=== PATIENT | male | born 2000 | race Caucasian/White ===

== ENCOUNTER 2019-04-16 08:39 | Outpatient (RCR) | payer OTHER ==
[~2019-04-16 08:39] MED LIST: ZYRTEC5 MG PO
== END 2019-07-15 | disposition home or self-care (01) ==
LOC: WSOH
DX: S92.404A Nondisplaced unspecified fracture of right great toe, initial encounter for closed fracture (principal); S90.211A Contusion of right great toe with damage to nail, initial encounter; W20.8XXA Other cause of strike by thrown, projected or falling object, initial encounter; Y92.218 Other school as the place of occurrence of the external cause; Y99.0 Civilian activity done for income or pay